=== PATIENT | male | born 1960 ===

== ENCOUNTER 2020-11-10 10:30 | Inpatient (IN) | payer OTHER ==
[~2020-11-10] VITALS: Ht 165.1 cm; Wt 68.0 kg
[2020-11-10] MEDS ORDERED: LEVO-T50 MCG PO (13:09)
[2020-11-10] MEDS ORDERED: HYDRODIURIL12.5 MG PO (13:09)
[2020-11-10] MEDS ORDERED: ADULT LOW DOSE81 M1 PO (13:09)
[2020-11-10] MEDS ORDERED: LIPITOR20 MG PO (13:09)
[2020-11-10] MEDS ORDERED: PRILOSEC OTC20 MG PO (13:10)
[2020-11-10] MEDS ORDERED: COZAAR50 MG PO (13:10)
[2020-11-25] MEDS ORDERED: ULTRACET PO (12:32)
== END 2020-11-25 13:21 | disposition home or self-care (01) | DRG 395 ==
LOC: SURH 11-17 10:30 → O/R 11-24 06:00 → SURH 11-24 06:00
PROVIDERS: ADMIT Surgery; ATTEND Surgery
PROC: 0DBP8ZX Excision of Rectum, Via Natural or Artificial Opening Endoscopic, Diagnostic (ICD-10-PCS; principal; 2020-11-24 19:30)
DX: D3A.026 Benign carcinoid tumor of the rectum (principal); D3A.8 Other benign neuroendocrine tumors; I10 Essential (primary) hypertension; E03.9 Hypothyroidism, unspecified